=== PATIENT | female | born 1960 | race Caucasian/White ===

== ENCOUNTER → 2016-06-13 | Outpatient (CLI) | payer BC | LOC: LABWHC1 16:06 | PROVIDERS: ATTEND Family Medicine | DX: Z00.00 Encounter for general adult medical examination without abnormal findings (principal) | CPT/HCPCS: 36415; 82272 ==

== ENCOUNTER → 2016-07-18 | Outpatient (CLI) | payer BC ==
--- NOTE | 2016-07-23 10:27 | ENG ---
DATE OF SERVICE: 07/18/2016 VNG INDICATIONS: A 55-year-old female onset of vertigo 2 months ago, associated with a sinus infection and improving. These have been occurring every week but lasts for a few seconds at a time and can be positionally related. Denies hearing loss and has bilateral tinnitus and no fullness or pressure in the ears. VNG FINDINGS: Saccades show unremarkable peak velocities, accuracies, and latencies. Gaze with fixation shows no nystagmus in any of the directions of gaze including centrally with vision denied. Tracking shows no breakups. Opticokinetic nystagmus shows no significant asymmetry. Static position testing of 6 positions with eyes open and with vision denied shows no nystagmus in any of the positions. Veda-Hallpike maneuver shows subjective moderate dizziness with the left ear down position. Caloric testing shows 7% unilateral left caloric weakness, which is within normal limits. IMPRESSION: Unremarkable VNG study. Correlate for possible benign positional vertigo on the left based on the patient's subjective response during Veda-Hallpike maneuvers.
== END | disposition home or self-care (01) ==
LOC: NEUROMAIN 06:44
PROVIDERS: ATTEND Otolaryngology
DX: R42 Dizziness and giddiness (principal)
CPT/HCPCS: 92537; 92540

== ENCOUNTER 2016-12-03 17:37 | Emergency (ER) | payer BC ==
[2016-12-03 17:41] VITALS: RESP 18; TEMP 98.4
[2016-12-03] MEDS ORDERED: ASPIRIN 81 MG CHEW PO STA (18:06)
[2016-12-03] MEDS ORDERED: ONDANSETRON 4 MG/2 ML VIAL IVP STA (18:06)
[2016-12-03] MEDS ORDERED: NITROGLYCERIN OINT 1 INCH/GM PACKET TOPICAL STA (18:06)
--- NOTE | 2016-12-03 18:09 | ED ---
Chest Pain HPI - General Chief Complaint: Chest Pain Stated Complaint: Chest pain Source: patient Mode of arrival: wheelchair Limitations: no limitations - History of Present Illness Initial Comments: This 56-year-old white female presents with a complaint of some chest pressure to her by sternal region which started 2 hours ago and radiates into her right shoulder. It is associated with some nausea as well as shortness of breath but no diaphoresis. This occurred shortly after eating. It was not exertionally related. She denies any leg pain or swelling or history of DVT or PE. Her last stress test was 15 years ago and she has never had a heart catheterization. She denies any prior cardiac disease. No other complaints or modifying factors. - Related Data Home Medications Medication Instructions Recorded Confirmed Amoxicillin 500 mg PO TID 12/03/16 12/03/16 Insulin Aspart (For Pump) [NovoLOG See Protocol SQ-PUMP CONTINUOUS 12/03/16 (For Pump)] Niacin 500 mg PO DAILY 12/03/16 12/03/16 Allergies Allergy/AdvReac Type Severity Reaction Status Date / Time No Known Allergies Allergy Verified 12/03/16 18:58 Review of Systems ROS Statement: Those systems with pertinent positive or pertinent negative responses have been documented in the HPI. ROS Other: All systems not noted in ROS Statement are negative. Past Medical History Past Medical History: Diabetes Mellitus History of Any Multi-Drug Resistant Organisms: None Reported Past Surgical History: No Surgical Hx Reported Past Psychological History: No Psychological Hx Reported Smoking Status: Current every day smoker Past Alcohol Use History: None Reported Past Drug Use History: None Reported General Exam - General Exam Comments Initial Comments: GENERAL: The patient is well nourished and well hydrated. VITAL SIGNS: Heart rate, blood pressure, respiratory rate reviewed as recorded in nurse's notes. EYES: Pupils are round and reactive. Extraocular movements are intact. No conjunctival / lid redness or swelling. ENT: No external evidence of injury, swelling, or ecchymosis. Airway is patent. Throat is clear. NECK: Nontender. No swelling or evidence of injury. No subcutaneous emphysema. Trachea is midline. No thyroid mass. HEART: Regular rate and rhythm. Good peripheral pulses. LUNGS/CHEST: Breath sounds clear and equal bilaterally. No rales, rhonchi, or wheezes. No ecchymosis, subcutaneous emphysema, or tenderness. ABDOMEN: Abdomen soft without tenderness. No palpable masses or organomegaly. No peritoneal signs. No abdominal wall swelling or ecchymosis. EXTREMITIES: No extremity tenderness. Normal muscle tone and function. No thoracolumbar tenderness. NEUROLOGIC: Sensation is grossly intact. Cranial nerve exam reveals face is symmetrical, tongue is midline, speech is clear. SKIN: No abrasions or ecchymosis is noted. No induration or masses noted. PSYCHIATRIC: Alert and oriented. Appropriate behavior and judgment. Limitations: no limitations Course Vital Signs 12/03/16 12/03/16 12/03/16 17:39 17:55 18:41 Temperature 98.4 F Pulse Rate 83 82 Pulse Rate [ 82 Guidance Adviser ] Respiratory 18 18 Rate Blood Pressure 202/86 166/79 O2 Sat by Pulse 99 96 Oximetry Chest Pain [facility] The patient was seen and examined. All diagnostics were reviewed. The patient had an EKG done which does show evidence of a normal sinus rhythm with a heart rate of 72. There is no acute ST-T wave changes identified. She receives an aspirin as well as some Nitropaste. The chest x-ray does not show any acute process and the labs are unremarkable. She is feeling much improved on recheck and her symptoms have resolved. It is felt as though she would benefit from admission to the hospital to rule out the possibility of acute coronary syndrome , especially in light of her fairly classic symptomatology. She refuses adamantly. Risks and benefits of admission were discussed and ultimately detail including the risk of heart attack and . She is still does not want to be admitted and refers to follow-up with her primary physician closely. She is instructed to take an aspirin daily and leaves AGAINST MEDICAL ADVICE. Disposition Clinical Impression: Chest pain, Nausea, Dyspnea, Left against medical advice, Unstable angina Disposition: Left Against Medical Advice Condition: Fair Instructions: Chest Pain (ED), Against Medical Advice (ED) Additional Instructions: Please take an aspirin daily. Please return if your symptoms do reoccur or worsen. Referrals: Lisbet Watson MD [Primary Care Provider] - 1-2 days Time of Disposition: 20:48
[2016-12-03 18:26] LABS: Basophils # (A) 0.1 k/uL (0-0.2); Basophils % (A) 1 %; CH 32.8; CHCM 34.5; Eosinophils # (A) 0.1 k/uL (0-0.7); Eosinophils % (A) 1 %; HCT 41.6 % (34.0-46.0); HDW 2.44; HGB 13.8 gm/dL (11.4-16.0); Luc # (Auto) 0.27; Luc % (Auto) 3; Lymphocytes # (A) 2.7 k/uL (1.0-4.8); Lymphocytes % (A) 26 %; MCH 31.6 pg (25.0-35.0); MCHC 33.1 g/dL (31.0-37.0); MCV 95.5 fL (80.0-100.0); Mean Platelet Volume 7.1; Monocytes # (A) 0.7 k/uL (0-1.0); Monocytes % (A) 7 %; Neutrophils # (A) 6.5 k/uL (1.3-7.7); Neutrophils % (A) 63 %; RBC 4.36 m/uL (3.80-5.40); WBC 10.4 k/uL (3.8-10.6); WBC (Perox) 9.98
[2016-12-03 18:37] LABS: ALT 34 U/L (9-52); AST 35 U/L (14-36); Alkaline Phosphatase 79 U/L (38-126); Anion Gap 8 mmol/L; Blood Urea Nitrogen 16 mg/dL (7-17); Calcium 9.2 mg/dL (8.4-10.2); Carbon Dioxide 26 mmol/L (22-30); Chloride 104 mmol/L (98-107); Glucose 157 mg/dL (74-99); Magnesium 1.6 mg/dL (1.6-2.3); Non-African American GFR(MDRD) >60 (>60 ml/min/1.73 sqM); Potassium 4.3 mmol/L (3.5-5.1); Sodium 138 mmol/L (137-145); Total Bilirubin 0.8 mg/dL (0.2-1.3); Total Protein 7.3 g/dL (6.3-8.2)
[2016-12-03 18:42] LABS: Creatine Kinase 71 U/L (30-135)
[2016-12-03 18:45] VITALS: BP 166/79; PULSE 82
[2016-12-03 18:53] LABS: Partial Thromboplastin Time 25.7 sec (22.0-30.0); Prothrombin Time 10.5 sec (9.0-12.0)
[2016-12-03 18:55] LABS: Creatine Kinase MB 0.7 ng/mL (0.0-2.4); Troponin I <0.012 ng/mL (0.000-0.034)
--- NOTE | 2016-12-03 19:09 | XR ---
EXAMINATION TYPE: XR chest 2V DATE OF EXAM: 12/03/2016 COMPARISON: NONE HISTORY: Chest pain TECHNIQUE: Frontal and lateral views of the chest are obtained. FINDINGS: Heart and mediastinum are normal. Lungs are clear. There is no pleural effusion. There is slight elevated left diaphragm. There are chest leads. Bony thorax is intact. IMPRESSION: Mild left diaphragm elevation could relate to partial paralysis. Normal heart.
== END 2016-12-03 21:00 | disposition left against medical advice (07) ==
LOC: EC 17:37
DX: I20.0 Unstable angina (principal); R11.0 Nausea; E11.9 Type 2 diabetes mellitus without complications; F17.200 Nicotine dependence, unspecified, uncomplicated; Z96.41 Presence of insulin pump (external) (internal); Z79.899 Other long term (current) drug therapy
CPT/HCPCS: 36415; 93005; 80053; 82550; 82553; 83735; 84484; 85025; 85610; 85730; 71020; 99285; 96374; J2405

== ENCOUNTER → 2017-01-29 | Outpatient (CLI) | payer BC ==
[~2017-01-29] MED LIST: REGADENOSON 0.4 MG/5 ML SYRINGE IV ONE
--- NOTE | 2017-01-29 12:13 | NM ---
EXAMINATION TYPE: NM stress lexiscan cardiolite DATE OF EXAM: 01/29/2017 COMPARISON: NONE HISTORY: History of tobacco use, hypertension, diabetes, hypercholesteremia presents with chest pain and difficulty in breathing. TECHNIQUE: After the intravenous administration of 10.23 mCi Tc 99m Sestamibi - Cardiolite resting S PECT images acquired 45 minutes post injection. The patient received 0.4mg Lexiscan, 29.7 mCi Tc 99m Sestamibi - Stress images obtained [address] injection FINDINGS: Review of stress and rest SPECT images demonstrates no distinct perfusion abnormality. Gated analysi s shows normal wall motion with an estimated left ventricular ejection fraction of 49 %. IMPRESSION: No scintigraphic evidence for reversible ischemia.
--- NOTE | 2017-01-29 13:10 | EST ---
EXERCISE STRESS DATE OF SERVICE: 01/29/2017 AGE: 56 SEX: Female HT: 62" WT: 195 pounds PROTOCOL: Lexiscan Cardiolite STAGE: DURATION OF EXERCISE: HEART RATE REST: 76 BLOOD PRESSURE REST: 155/84 MAXIMUM HEART RATE ACHIEVED: 102 MAXIMUM BLOOD PRESSURE: 187/88 85% MPHR: 100% MPHR: METS: INDICATIONS: Chest pain. STRESS DATA: Pretesting physical examination showed heart rate of 76, pressure is 155/84 mmHg. Baseline EKG showed sinus mechanism. The patient was given 0.4 mg of Lexiscan over 15 seconds per protocol. Max heart rate was 102 beats per minute and maximum blood pressure was 187/88 mmHg. Clinically the patient did not have any symptoms and the EKG did not show any significant ST or T wave abnormalities consistent with ischemia. CONCLUSION: 1. Nondiagnostic electrocardiogram stress testing in response to Lexiscan. 2. Please follow up on the Cardiolite portion on separate report. MMODL / IJN: [id number] /
== END | disposition home or self-care (01) ==
LOC: RADNMMAIN 07:43
PROVIDERS: ATTEND Family Medicine
DX: R07.89 Other chest pain (principal)
CPT/HCPCS: 93017; 78452; A9500; J2785

== ENCOUNTER → 2017-02-11 | Outpatient (CLI) | payer BC ==
--- NOTE | 2017-02-12 11:32 | ECHOF ---
Referral Reason:R07.89 Atypical chest pain I10 Hypertension MEASUREMENTS -------- HEIGHT: 157.5 cm WEIGHT: 88.5 kg BP: 201/88 RVIDd: 3.3 cm (< 3.3) IVSd: 1.1 cm (0.6 - 1.1) LVIDd: 3.7 cm (3.9 - 5.3) LVPWd: 1.0 cm (0.6 - 1.1) IVSs: 1.5 cm LVIDs: 2.5 cm LVPWs: 1.3 cm LAESV Index (A-L): 20.75 ml/m Ao Diam: 2.8 cm (2.0 - 3.7) AV Cusp: 1.8 cm (1.5 - 2.6) LA Diam: 3.1 cm (2.7 - 3.8) MV EXCURSION: 15.965 mm (> 18.000) MV EF SLOPE: 103 mm/s (70 - 150) EPSS: 0.3 cm MV E Esteban: 0.92 m/s MV DecT: 242 ms MV A Esteban: 1.19 m/s MV E/A Ratio: 0.77 RAP: 5.00 mmHg RVSP: 31.01 mmHg FINDINGS -------- Sinus rhythm. This was a technically adequate study. The left ventricular size is normal. There is borderline concentric left ventricular hypertrophy. Overall left ventricular systolic function is normal with, an EF between 55 - 60 %. The right ventricle is normal in size and function. Normal LA size by volume 22+/-6 ml/m2. The right atrium is normal in size. The aortic valve is trileaflet, and appears structurally normal. No aortic stenosis or regurgitation. The mitral valve is normal. There is trace mitral regurgitation. Trace tricuspid regurgitation present. Right ventricular systolic pressure is normal at < 35 mmHg. There is no evidence of pulmonary hypertension. There is no pulmonic regurgitation present. The aortic root size is normal. Normal inferior vena cava with normal inspiratory collapse consistent with estimated right atrial pre ssure of 5 mmHg. There is no pericardial effusion. CONCLUSIONS -------- 1. Sinus rhythm. 2. This was a technically adequate study. 3. There is borderline concentric left ventricular hypertrophy. 4. Overall left ventricular systolic function is normal with, an EF between 55 - 60 %. 5. Normal LA size by volume 22+/-6 ml/m2. 6. The aortic valve is trileaflet, and appears structurally normal. No aortic stenosis or regurgitati on. 7. There is trace mitral regurgitation. 8. Trace tricuspid regurgitation present. 9. Right ventricular systolic pressure is normal at < 35 mmHg. 10. There is no pulmonic regurgitation present. 11. The aortic root size is normal. 12. There is no pericardial effusion. ASSOCIATE PROFESSOR OF ANTHROPOLOGY: José Luis Wright RDCS
== END | disposition home or self-care (01) ==
LOC: RADECHMAIN 16:10
PROVIDERS: ATTEND Family Medicine
DX: E07.89 Other specified disorders of thyroid (principal); I10 Essential (primary) hypertension
CPT/HCPCS: 93306

== ENCOUNTER 2017-09-04 10:00 | Emergency (ER) | payer BC, OTHER ==
[2017-09-04 10:47] VITALS: BP 171/77; PULSE 92; RESP 18; TEMP 97.7
[2017-09-04] MEDS ORDERED: KETOROLAC 60 MG/2 ML VIAL IM STA (11:20)
--- NOTE | 2017-09-04 11:39 | ED ---
General Adult HPI - General Chief complaint: Extremity Injury, Lower Stated complaint: fall, leg pain Time Seen by Provider: 09/04/17 10:45 Source: patient, RN notes reviewed Mode of arrival: wheelchair Limitations: physical limitation - History of Present Illness Initial comments: This is a 57-year-old female who was doing a little bit of running when she felt a pop in the back of her hamstring on her right and fell to the ground. Patient denies any hip pain and knee pain anterior thigh pain. Patient states the pain appears to be in her hamstring. Patient was able to but with significant pain. - Related Data Home Medications Medication Instructions Recorded Confirmed Amoxicillin 500 mg PO TID 12/03/16 12/03/16 Insulin Aspart (For Pump) [NovoLOG See Protocol SQ-PUMP CONTINUOUS 12/03/16 (For Pump)] Niacin 500 mg PO DAILY 12/03/16 12/03/16 Allergies Allergy/AdvReac Type Severity Reaction Status Date / Time No Known Allergies Allergy Verified 09/04/17 10:47 Review of Systems ROS Statement: Those systems with pertinent positive or pertinent negative responses have been documented in the HPI. ROS Other: All systems not noted in ROS Statement are negative. Past Medical History Past Medical History: Diabetes Mellitus, Hyperlipidemia, Hypertension History of Any Multi-Drug Resistant Organisms: None Reported Past Surgical History: No Surgical Hx Reported Past Psychological History: No Psychological Hx Reported Smoking Status: Former smoker Past Alcohol Use History: None Reported Past Drug Use History: None Reported General Exam - General Exam Comments Initial Comments: GENERAL Patient is well-developed and well-nourished. Patient is in mild distress. EYES Patient's pupils are equal and round. Extraocular motion is intact SKIN Unremarkable NEURO The patient is alert and oriented 3 PYSCH Patient has normal interpersonal interactions. MUSCULOSKELETAL Patient has no hip tenderness no need tenderness. Patient has no tenderness of the femur. Patient has some slight tenderness to palpation of the hamstring. I had the patient ambulate and when she came to that she was experiencing pain in the hamstring. Limitations: physical limitation Course Vital Signs 09/04/17 10:43 Temperature 97.7 F Pulse Rate 92 Respiratory 18 Rate Blood Pressure 171/77 O2 Sat by Pulse 98 Oximetry Medical Decision Making - Medical Decision Making When I told the patient that there was nothing I could do for hamstring injury she seemed upset and wanted to go straight [facility] didn't want crutches and didn't want any kind of brace see if it would help her ambulate. Patient initially refused the Toradol shot but eventually took. Disposition Clinical Impression: Hamstring muscle strain Disposition: HOME SELF-CARE Instructions: Hamstring Injury (ED) Is patient prescribed a controlled substance at d/c from ED?: No Referrals: Lisbet Watson MD [Primary Care Provider] - 1-2 days Time of Disposition: 11:38
== END 2017-09-04 11:56 | disposition home or self-care (01) ==
LOC: EC 10:00
DX: S76.311A Strain of muscle, fascia and tendon of the posterior muscle group at thigh level, right thigh, initial encounter (principal); E11.9 Type 2 diabetes mellitus without complications; Z87.891 Personal history of nicotine dependence; Z79.4 Long term (current) use of insulin; Z79.899 Other long term (current) drug therapy; X50.1XXA Overexertion from prolonged static or awkward postures, initial encounter; W18.39XA Other fall on same level, initial encounter; Y92.69 Other specified industrial and construction area as the place of occurrence of the external cause; Y99.0 Civilian activity done for income or pay
CPT/HCPCS: 99283; 96372; J1885

== ENCOUNTER → 2017-09-06 | Outpatient (CLI) | payer OTHER ==
--- NOTE | 2017-09-06 10:39 | XR ---
EXAMINATION TYPE: XR pelvis AP view, XR femur RT, XR knee complete RT DATE OF EXAM: 09/06/2017 CLINICAL HISTORY: Pelvic and right femur and hip pain after fall injury 2 days ago.. TECHNIQUE: A single AP view of the pelvis is obtained. Two views of the right femur are obtained. 3 views of the right knee are acquired. COMPARISON: None. FINDINGS: There is no acute fracture/dislocation evident in the pelvis. The sacroiliac joints appear symmetric and unremarkable. Bilateral hip joints show mild acetabular spurring and axial joint space loss. Pub ic symphysis is intact. Vascular calcification of overlying soft tissue is seen. Two views of right femur show no acute fracture or dislocation. No focal lytic or sclerotic lesion s een in the femur. The overlying soft tissue is unremarkable. Images of right knee show no acute fracture or dislocation. There is mild tricompartment joint space loss. Overlying soft tissue is unremarkable. IMPRESSION: There is no acute fracture or dislocation in the pelvis , right femur or right knee.
== END | disposition home or self-care (01) ==
LOC: RADXRMAIN 09:44
PROVIDERS: ATTEND Emergency Medicine
DX: S83.8X1A Sprain of other specified parts of right knee, initial encounter (principal); S73.101A Unspecified sprain of right hip, initial encounter; M79.604 Pain in right leg; M25.561 Pain in right knee
CPT/HCPCS: 72170

== ENCOUNTER → 2017-09-27 | Outpatient (CLI) | payer OTHER ==
--- NOTE | 2017-09-27 10:04 | US ---
EXAMINATION TYPE: US venous doppler duplex LE RT DATE OF EXAM: 09/27/2017 9:46 AM COMPARISON: NONE CLINICAL HISTORY: M79.604 R leg pain,M25.551 Hip pain; right calf pain after running injury 3 weeks a go. SIDE PERFORMED: Right TECHNIQUE: The lower extremity deep venous system is examined utilizing real time linear array sonog joe with graded compression, doppler sonography and color-flow sonography. VESSELS IMAGED: Common Femoral Vein Deep Femoral Vein Greater Saphenous Vein * Femoral Vein Popliteal Vein Small Saphenous Vein * Proximal Calf Veins (* superficial vessels) Right Leg: Negative for DVT IMPRESSION: 1. Right lower extremity venous ultrasound negative venous thrombosis.
--- NOTE | 2017-09-27 10:23 | XR ---
EXAMINATION TYPE: XR Hip Complete RT DATE OF EXAM: 09/27/2017 COMPARISON: NONE HISTORY: Right hip and femur pain TECHNIQUE: 2 views right hip FINDINGS: Femoral head articulates with the acetabulum. Some minimal joint space narrowing and acetab ular spurring may be present. No acute fractures are evident. Soft tissues appear unremarkable as vis ualized. IMPRESSION: 1. No acute osseous abnormality
--- NOTE | 2017-09-27 10:24 | XR ---
EXAMINATION TYPE: XR femur RT DATE OF EXAM: 09/27/2017 COMPARISON: NONE HISTORY: Right leg pain running and felt hamstring pop TECHNIQUE: 2 view right femur FINDINGS: Right femur is examined in 2 views. The joint spaces appear within normal limits. No acute fractures are evident. Soft tissues appear unremarkable. No joint effusion is evident at the knee. IMPRESSION: 1. Normal right femur
== END | disposition home or self-care (01) ==
LOC: RADUSWWP 09:09
PROVIDERS: ATTEND Emergency Medicine
DX: M25.551 Pain in right hip (principal); M79.604 Pain in right leg
CPT/HCPCS: 73502

== ENCOUNTER → 2017-11-25 | Outpatient (CLI) | payer BC ==
[2017-11-25 11:47] LABS: ALT 32 U/L (9-52); AST 28 U/L (14-36); Albumin 4.1 g/dL (3.5-5.0); Alkaline Phosphatase 71 U/L (38-126); Anion Gap 8 mmol/L; Blood Urea Nitrogen 15 mg/dL (7-17); Calcium 9.8 mg/dL (8.4-10.2); Carbon Dioxide 27 mmol/L (22-30); Chloride 105 mmol/L (98-107); Cholesterol 237 mg/dL (<200); Glucose 176 mg/dL (74-99); HDL Cholesterol 79 mg/dL (40-60); LDL Cholesterol,Calculated 142 mg/dL (0-99); Potassium 4.8 mmol/L (3.5-5.1); Sodium 140 mmol/L (137-145); Total Bilirubin 0.8 mg/dL (0.2-1.3); Total Protein 7.5 g/dL (6.3-8.2); Triglycerides 81 mg/dL (<150)
[2017-11-25 18:41] LABS: Hemoglobin A1C 8.5 % (4.0-6.0)
== END | disposition home or self-care (01) ==
LOC: LABWHC1 10:59
PROVIDERS: ATTEND Internal Medicine Endocrinology, Diabetes & Metabolism
DX: E10.65 Type 1 diabetes mellitus with hyperglycemia (principal)
CPT/HCPCS: 36415; 80053; 80061; 83036; 84443

== ENCOUNTER → 2017-11-26 | Outpatient (CLI) | payer BC, OTHER ==
--- NOTE | 2017-11-26 12:05 | XR ---
Fluoroscopy HISTORY: Pain in calf, difficulty walking 2 views of the right leg Right knee 09/06/2017 Bone mineralization, joint spaces and alignment are maintained. Small calcification adjacent to the m edial aspect of the proximal tibia is stable. No fracture or dislocation. IMPRESSION: No significant abnormality of the right leg.
== END | disposition home or self-care (01) ==
LOC: RADXRMAIN 11:20
PROVIDERS: ATTEND Emergency Medicine
DX: S83.8X1D Sprain of other specified parts of right knee, subsequent encounter (principal); M79.604 Pain in right leg

== ENCOUNTER → 2017-11-26 | Outpatient (CLI) | payer OTHER ==
--- NOTE | 2017-11-26 12:53 | US ---
EXAMINATION TYPE: US venous doppler duplex LE RT DATE OF EXAM: 11/26/2017 12:33 PM COMPARISON: CLINICAL HISTORY: M79.64 Pain in Right Leg.. Right calf pain. No hx of DVT. Not on blood thinners. SIDE PERFORMED: Right TECHNIQUE: The lower extremity deep venous system is examined utilizing real time linear array sonog joe with graded compression, doppler sonography and color-flow sonography. VESSELS IMAGED: External Iliac Vein (EIV) Common Femoral Vein Deep Femoral Vein Greater Saphenous Vein * Femoral Vein Popliteal Vein Small Saphenous Vein * (* superficial vessels) Grayscale, color doppler, spectral doppler imaging performed of the deep veins of the lower extremiti es. There is normal flow, compressibility, vascular waveforms. Right Leg: Negative for DVT IMPRESSION: No evident deep venous thrombosis at or above the right knee.
== END | disposition home or self-care (01) ==
LOC: RADUSWWP 11:47
PROVIDERS: ATTEND Emergency Medicine
DX: S83.8X1D Sprain of other specified parts of right knee, subsequent encounter (principal); M79.604 Pain in right leg

== ENCOUNTER → 2018-08-06 | Outpatient (CLI) | payer BC ==
--- NOTE | 2018-08-07 07:27 | XR ---
EXAMINATION TYPE: XR Hip Complete RT DATE OF EXAM: 08/06/2018 CLINICAL HISTORY: Right hip pain TECHNIQUE: AP and frogleg views of the right hip are obtained. COMPARISON: None. FINDINGS: There is no acute fracture/dislocation evident in the right hip. The joint space in the r ight hip is narrowed with small marginal osteophytes. The overlying soft tissue appears unremarkable . IMPRESSION: There is no acute fracture or dislocation in the right hip. 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
== END ==
LOC: RADXRMAIN 15:57
PROVIDERS: ATTEND Family Medicine
DX: M16.11 Unilateral primary osteoarthritis, right hip (principal)
CPT/HCPCS: 73502

== ENCOUNTER → 2018-08-20 | Outpatient (CLI) | payer BC ==
--- NOTE | 2018-08-20 18:32 | MR ---
EXAMINATION TYPE: MR hip RT wo con DATE OF EXAM: 08/20/2018 COMPARISON: Right hip x-ray from 2 weeks ago. HISTORY: Pain in right hip per order. Buckling and clicking with pain for 9 to 12 months per patient. Standard multiplanar, multisequence MRI departmental protocol Multiplanar, multisequence images of the pelvis focusing on hip were acquired. FINDINGS: Bone marrow signal intensity in the visualized pelvis is heterogeneous. No suspicious focal edema is seen with particular attention to the right hip and proximal femur. No suspicious serpigino us low T1 signal is noted. There is symmetric mild axial joint space loss and acetabular spurring in both hips. There are symmetric tiny bilateral hip joint effusions presumed physiologic. Mild edematou s change at level of greater trochanter is seen bilaterally suspicious for a mild bursitis. No suspic ious edema level of lesser trochanter is noted. There is no suspicious bowel or fat-containing groin hernia. No suspicious groin adenopathy. Muscle b ulk bilateral thighs is symmetric and felt within normal limits. Slightly retroverted uterus projects to the left of midline. Bladder is poorly distended. No suspicio us bowel dilatation. Mild prominence of fecal material in the rectum. IMPRESSION: Mild osteoarthritic changes right hip. Mild greater trochanteric bursitis. Similar findin gs in the opposite left hip noted.
== END | disposition home or self-care (01) ==
LOC: RADMRIMAIN 17:18
PROVIDERS: ATTEND Orthopaedic Surgery
DX: M16.11 Unilateral primary osteoarthritis, right hip (principal); M70.62 Trochanteric bursitis, left hip; M70.61 Trochanteric bursitis, right hip

== ENCOUNTER → 2018-08-27 | Outpatient (CLI) | payer BC ==
--- NOTE | 2018-08-28 13:32 | MM ---
Reason for exam: screening (asymptomatic). Last mammogram was performed 2 years and 2 months ago. History: Patient is postmenopausal and is nulliparous. Physical Findings: A clinical breast exam by your physician is recommended on an annual basis and results should be correlated with mammographic findings. MG Screening Mammo w CAD Bilateral CC and MLO view(s) were taken. Prior study comparison: June 15, 2016, mammogram, performed at [facility]. There are scattered fibroglandular densities. No significant changes when compared with prior studies. ASSESSMENT: Benign, BI-RAD 2 RECOMMENDATION: Routine screening mammogram of both breasts in 1 year.
== END | disposition home or self-care (01) ==
LOC: RADMAMWWP 16:21
PROVIDERS: ATTEND Family Medicine
DX: Z12.31 Encounter for screening mammogram for malignant neoplasm of breast (principal)
CPT/HCPCS: 77067